=== PATIENT | male | born 1980 | race Caucasian/White ===

== ENCOUNTER → 2021-03-14 08:13 | Outpatient (BNVA) | payer OTHER, SELFPAY | PROVIDERS: Visit Provider Orthopaedic Surgery | DX: M47.896 Other spondylosis, lumbar region (principal); M54.5 Low back pain | CPT/HCPCS: 72110 ==

== ENCOUNTER → 2021-03-27 08:53 | Outpatient (BNVA) | payer OTHER, SELFPAY | PROVIDERS: PCP Family Medicine; Visit Provider Family Medicine | DX: I10 Essential (primary) hypertension (principal); M54.16 Radiculopathy, lumbar region; F17.228 Nicotine dependence, chewing tobacco, with other nicotine-induced disorders; Z13.6 Encounter for screening for cardiovascular disorders | CPT/HCPCS: 80053; 80061 ==

== ENCOUNTER 2021-04-07 12:30 | Outpatient (CLI) | payer OTHER, SELFPAY ==
--- NOTE | 2021-04-07 13:00 | MR_ITS ---
WS: [id number] MRI LUMBAR SPINE NONCONTRAST HISTORY: M54.9 - Dorsalgia, unspecified COMPARISON: None available. TECHNIQUE: Sagittal and axial multisequence imaging is submitted. Moderate straightening of the normal cervical lordosis. Mild cervical canal at C5-6 and C6-7. Mild straightening of the L1-2 with mild contact on the ventral thecal sac. Mild disc desiccation and narrowing throughout the lumbar spine. No fractures. No marrow edema. Conus terminates normally at T12-L1. L1-L2: Mild disc bulging and osteophytic ridging and central disc protrusion. Disc encroachment upon the ventral thecal sac with mild central and bilateral subarticular recess stenosis. L2-L3: Posterior to the L2 vertebral body is a low signal intensity soft tissue mass measuring 12 mm in length and transversely by 7 mm. There is contact on the ventral thecal sac at the L2 level. Soft tissue is slightly greater to the RIGHT of midline. Mild deformity of the thecal sac. Favor this may be an extruded disc fragment as it does appear to be connected to the L2-3 disc. There is mild disc e ncroachment upon the ventral thecal sac with mild ligamentum flavum hypertrophy and facet arthritis. Mild central and bilateral subarticular recess stenosis. Slightly greater narrowing of the RIGHT fora men. L3-L4: Mild annular disc bulging and ligamentum flavum and facet arthritis. Mild central and bilatera l foraminal stenosis. L4-L5: Mild annular disc bulging with moderate ligamentum flavum hypertrophy and facet arthritis. Flu id in the facet joints. Moderate bilateral foraminal stenosis. L5-S1: Mild facet arthritis. Mild bilateral foraminal stenosis. Paravertebral soft tissues are normal. MR/MR lumbar spine wo con* [id number] IMPRESSION: 1. Soft tissue mass posterior to the L2 vertebral body causing encroachment up on the thecal sac greatest to the RIGHT of midline. This does appear to be conn ected to the L2-3. Disc. I suspect this is extruded disc fragment which is migr ated cephalad to the disc level resulting in deformity and encroachment upon th e thecal sac. 2. Mild central and bilateral subarticular recess stenosis and RIGHT foraminal stenosis at L2-3. 3. Mild central and bilateral subarticular recess stenosis at L1-2. 4. Moderate bilateral foraminal stenosis at L4-5. 5. Mild central and bilateral frontal stenosis at L3-4 and mild bilateral fora joyce stenosis at L5-S1.
== END 2021-04-07 12:31 | disposition home or self-care (01) ==
LOC: RADSHAW 12:36
PROVIDERS: PCP Family Medicine; Visit Provider Orthopaedic Surgery
DX: M54.5 Low back pain (principal); M48.061 Spinal stenosis, lumbar region without neurogenic claudication
CPT/HCPCS: 72148

== ENCOUNTER → 2022-05-17 09:03 | Outpatient (BNVA) | payer OTHER, SELFPAY | PROVIDERS: PCP Family Medicine; Visit Provider Family Medicine | DX: I10 Essential (primary) hypertension (principal); Z13.6 Encounter for screening for cardiovascular disorders | CPT/HCPCS: 80053; 80061; 85025 ==

== ENCOUNTER → 2023-06-10 16:44 | Outpatient (BNVA) | payer OTHER, SELFPAY | PROVIDERS: PCP Family Medicine; Visit Provider Family Medicine | DX: I10 Essential (primary) hypertension (principal); Z13.6 Encounter for screening for cardiovascular disorders | CPT/HCPCS: 80053; 80061 ==

== ENCOUNTER → 2024-07-01 08:30 | Outpatient (BNVA) | payer OTHER, SELFPAY | PROVIDERS: PCP Family Medicine; Visit Provider Family Medicine | DX: I10 Essential (primary) hypertension (principal); Z13.6 Encounter for screening for cardiovascular disorders; R53.82 Chronic fatigue, unspecified; G47.9 Sleep disorder, unspecified | CPT/HCPCS: 80053; 80061; 84403; 84443 ==

== ENCOUNTER → 2024-10-28 07:59 | Outpatient (BNVA) | payer OTHER, SELFPAY | PROVIDERS: PCP Family Medicine; Visit Provider Family Medicine | DX: E29.1 Testicular hypofunction (principal); R79.89 Other specified abnormal findings of blood chemistry; R53.82 Chronic fatigue, unspecified | CPT/HCPCS: 80053; 84403; 85025 ==

== ENCOUNTER → 2024-12-14 08:30 | Outpatient (BNVA) | payer OTHER, SELFPAY | PROVIDERS: PCP Family Medicine; Visit Provider Family Medicine | DX: E29.1 Testicular hypofunction (principal); R79.89 Other specified abnormal findings of blood chemistry; I10 Essential (primary) hypertension; R53.82 Chronic fatigue, unspecified | CPT/HCPCS: 80053; 84403; 85025 ==

== ENCOUNTER → 2025-07-06 07:15 | Outpatient (BNVA) | payer OTHER, SELFPAY | PROVIDERS: PCP Family Medicine; Visit Provider Family Medicine | DX: E55.9 Vitamin D deficiency, unspecified (principal); R79.89 Other specified abnormal findings of blood chemistry; R53.82 Chronic fatigue, unspecified; I10 Essential (primary) hypertension; Z12.5 Encounter for screening for malignant neoplasm of prostate; E29.1 Testicular hypofunction | CPT/HCPCS: 80053; 80061; 82306; 82607; 84403; 84443; 85025; G0103 ==